=== PATIENT | female | born 1990 | race Caucasian/White ===

== ENCOUNTER 2018-01-28 20:48 | Emergency (ER) | payer BC, OTHER ==
[2018-01-28 20:54] VITALS: BP 116/73; PULSE 81; TEMP 97.8; BMI 20.5
[2018-01-28] MEDS ORDERED: IBUPROFEN 400 MG TABLET (FP) PO ONE ×2 (21:18→21:21)
--- NOTE | 2018-01-28 21:22 | PDOC ---
History of Present Illness - General Chief Complaint: Ear Problem Stated Complaint: EARACHE Time Seen by Provider: 01/28/18 20:52 History Source: Patient - History of Present Illness Timing/Duration: reports: other Associated Symptoms: reports: cough, earache. denies: fever/chills, lightheadedness, nasal congestion, nasal drainage, sore throat Past History - Past Medical History Allergies/Adverse Reactions: Allergies Allergy/AdvReac Type Severity Reaction Status Date / Time fluconazole [From Diflucan] Allergy Verified 01/28/18 20:52 Home Medications: Ambulatory Orders NK [No Known Home Medication] 01/28/18 - Suicide/Smoking/Psychosocial Hx Smoking History: Never smoked Have you smoked in the past 12 months: No Information on smoking cessation initiated: No Hx Alcohol Use: No Drug/Substance Use Hx: No Review of Systems - Review of Systems Constitutional: No: Chills, Fever HEENTM: Yes: Ear Pain Respiratory: Yes: Cough *Physical Exam - Vital Signs Last Vital Signs Temp Pulse Resp BP Pulse Ox 97.8 F 81 20 116/73 99 01/28/18 20:52 01/28/18 20:52 01/28/18 20:52 01/28/18 20:52 01/28/18 20:52 - Physical Exam General Appearance: Yes: Appropriately Dressed. No: Apparent Distress HEENT: positive: Normal ENT Inspection, Normal Voice. negative: Scleral Icterus (R), Scleral Icterus (L) Neck: positive: Supple. negative: Lymphadenopathy (R), Lymphadenopathy (L) Respiratory/Chest: negative: Respiratory Distress Integumentary: positive: Dry, Warm Neurologic: positive: Fully Oriented, Alert, Normal Mood/Affect Medical Decision Making - Medical Decision Making 01/28/18 21:44 27-year-old female, no significant history here with left ear pain radiating to face and head and dry cough for several days. No sore throat, fever or chills. No sick contacts. Came back from [place] a week ago ans states L eye "popped" while on plane. Patient well-appearing and stable with unremarkable exam. Possibly viral. DC with supportive treatment as needed *DC/Admit/Observation/Transfer Diagnosis at time of Disposition: Ear pain, left - Discharge Dispostion Disposition: HOME Condition at time of disposition: Good - Referrals Referrals: Brandon Jeter [Primary Care Provider] - - Patient Instructions Printed Discharge Instructions: DI for Ear Pain-Adult Additional Instructions: You most likely have a viral etiology for your symptoms. Take Motrin as needed and if symptoms worsen, please return to ER - Post Discharge Activity
== END 2018-01-28 21:22 | disposition home or self-care (01) ==
LOC: JERFT 20:48
DX: H92.02 Otalgia, left ear (principal)
CPT/HCPCS: 99281-25